=== PATIENT | female | born 1980 | race Caucasian/White ===

== ENCOUNTER 2019-06-07 20:15 | Emergency (ER) | payer OTHER, SELFPAY ==
[2019-06-07 20:16] VITALS: BP 123/74; PULSE 87; RESP 16; TEMP 36.6; O2SAT 100
[2019-06-07 20:28] VITALS: BP 141/97; PULSE 77; RESP 18; O2SAT 100
--- NOTE | 2019-06-07 20:30 | ED.FEMALEGU ---
HPI - Female Genitourinary General Chief complaint: Vaginal Bleeding Stated complaint: weakness Time Seen by Provider: 06/07/19 20:24 Source: patient Mode of arrival: ambulatory Limitations: no limitations History of Present Illness HPI Narrative: A 39 y/o female presents to the ED with c/o vaginal bleeding. Pt states that 3 months ago she started to have severe vaginal bleeding with clots and ABD cramping. She notes that she went to see her PCP for the vaginal bleeding, and had blood work done. The blood work showed that she was anemic and her PCP prescribed her control pills. At that appointment, the patient had a pelvic done which revealed that her uterus was inflamed. The patient has an US done as well, which came back normal. She notes that this month she had a heavy menstrual cycle on 05/17/19 that lasted till 05/27/19. Pt adds that she started her menstrual cycle again yesterday and states that it was dark blood with clots. She is still on control and takes Iron daily. Pt does not note any aggravating or alleviating for the vaginal bleeding. She reports decreased sleep, dizziness, N/V, and JANE, but denies ABD cramping. Pt has not seen an [employer] in 3 years. MD elicited complaint: vaginal bleeding Onset (ago): month(s) (3) Location of symptoms: vaginal Severity: similar to previous episodes Vaginal bleeding: dark red and clots Exacerbating factors: none Relieving factors: none Associated symptoms: headaches, nausea, vomiting and other (Decreased sleep, dizziness) Related Data Allergies Allergy/AdvReac Type Severity Reaction Status Date / Time No Known Allergies Allergy Unverified 01/19/17 08:16 Review of Systems Review of Systems: All systems reviewed & are unremarkable except as noted in HPI and below Constitutional: Constitutional: Reports other (Decreased sleep) Gastrointestinal: Gastrointestinal: Denies abdominal pain, Reports nausea and Reports vomiting Genitourinary: Genitourinary: Reports abnormal vaginal bleeding Neurologic: Reports dizziness and Reports headache(s) [facility] Past Medical History Medical History (Updated 06/07/19 @ 21:46 by Joanne Underwood MD) Abnormal glandular Papanicolaou smear of cervix Anemia Attention deficit disorder (ADD) in adult GERD (gastroesophageal reflux disease) Gestational HTN Human papillomavirus Nicotine dependence with current use Surgical History Surgical History (Updated 06/07/19 @ 20:33 by Delores Last) History of section Hx of tubal ligation Social History Social History (Updated 06/07/19 @ 20:33 by Delores Last) Smoking status: Former smoker Tobacco type: cigarettes Second hand tobacco smoke exposure: Yes Smoking end date: 04/10/13 Gender identity (if verbalized by the patient): Female Exam Const: General: no acute distress and well developed Orientation/consciousness: oriented to person, oriented to place, oriented to time and patient oriented x3 HENMT: Head: normocephalic Ears: external ears normal General nose exam: Normal external nose present Eyes: General: appearance normal, both eyes and all related structures Conjunctivae: conjunctivae normal Neck: Neck: normal visual inspection and full ROM Chest: Chest palpation & inspection: normal inspection of the chest and no tenderness Resp: Effort & Inspection: normal respiratory effort Auscultation: clear to auscultation bilaterally Cardio: Rate: regular rate Rhythm: regular rhythm GI: GI Palp: No abdominal tenderness and Yes Soft to palpation Skin: General skin exam: normal color and turgor normal Neuro: General: oriented to person, oriented to place, oriented to time and patient oriented x3 Cognition (Neuro): normal cognition Extrem: General: normal to inspection, full ROM and no pedal edema Psych: Appearance: grossly normal Mental Status: mental status grossly normal Affect: normal affect Course Vital Signs Vital signs: Vital Signs Temperature 36.6
[2019-06-07 20:53] LABS: Basophils Absolute Auto 0.1 K/mm3 (0.0-0.1); Basophils Percent Auto 0.7 % (0.2-1.2); Eosinophils Absolute Auto 0.2 K/mm3 (0-0.3); Eosinophils Percent Auto 2.7 % (0-4.4); Hematocrit 34.5 % (37.0-47.0); Hemoglobin 11.4 g/dL (12.0-15.0); Immature Granulocyte Absolute 0.02 K/mm3 (0.00-0.031); Immature Granulocyte Percent A 0.2 % (0-0.5); Lymphocytes Absolute Auto 3.27 K/mm3 (0.9-3.2); Lymphocytes Percent Auto 36.1 % (18.3-44.2); Mean Corpuscular Hemoglobin 28.6 pg (26-34); Mean Corpuscular Volume 86.5 fl (80-100); Mean Platelet Volume 10.4 fl (7.4-10.4); Monocytes Absolute Auto 0.6 K/mm3 (0.1-0.6); Monocytes Percent Auto 6.2 % (2.6-8.5); Neutrophils Absolute Auto 4.9 K/mm3 (1.3-6.7); Neutrophils Percent Auto 54.1 % (45.5-73.1); Platelet Count Result 353 k/mm3 (150-375); Red Blood Count 3.99 M/mm3 (4.2-5.4); Red Cell Distribution Width 13.2 % (11.5-14.5); White Blood Count 9.1 K/mm3 (4.5-10.0)
[2019-06-07 21:05] LABS: Alanine Aminotransferase 14 U/L (4-35); Albumin Level 4.1 g/dL (3.5-5.1); Alkaline Phosphatase 52 U/L (38-126); Aspartate Amino Transferase 15 U/L (14-36); Bilirubin,Total 0.3 mg/dL (0.2-1.3); Blood Urea Nitrogen 11 mg/dL (7-17); Calcium 9.4 mg/dL (8.4-10.2); Carbon Dioxide 22 mmol/L (22-30); Chloride 103 mmol/L (98-107); Estimated CRCL calculation 96 ml/min; Estimated Glomerular Filt Rate > 60; Glucose 107 mg/dL (65-105); Potassium 3.3 mmol/L (3.4-5.0); Sodium 140 mmol/L (137-145)
[2019-06-07] MEDS: POTASSIUM CHLORIDE 20 MEQ TABLET PO (21:21)
[2019-06-07 21:22] VITALS: BP 129/90; PULSE 76; RESP 18; O2SAT 99
[2019-06-07 21:29] LABS: Add Urine Microscopic? YES; Appearance Urine Clear (Clear); Bilirubin Urine Negative (Negative); Blood Urine 2+ (Negative); Color Urine Yellow (Yellow); Glucose Urine UA Negative (Negative); Ketones Urine Trace mg/dL (Negative); Leukocyte Esterase Ur Negative LEU/UL (Negative); Mucus Urine Heavy /lpf; Nitrate Urine Negative (Negative); Protein Urine 1+ mg/dL (Negative); Squamous Epithelial Cell Urine Few /hpf (Few); WBC Urine 0-3 /hpf
[2019-06-07 21:32] LABS: Specific Grav Ur 1.032 (1.001-1.035)
[2019-06-07 22:05] VITALS: BP 126/78; PULSE 78; RESP 18; TEMP 36.8; O2SAT 99
== END 2019-06-07 22:07 | disposition home or self-care (01) ==
PROVIDERS: Emergency Provider Emergency Medicine; PCP Family Medicine
DX: N93.9 Abnormal uterine and vaginal bleeding, unspecified (principal); D64.9 Anemia, unspecified; K21.9 Gastro-esophageal reflux disease without esophagitis; Z87.891 Personal history of nicotine dependence; Z77.22 Contact with and (suspected) exposure to environmental tobacco smoke (acute) (chronic); F98.8 Other specified behavioral and emotional disorders with onset usually occurring in childhood and adolescence
CPT/HCPCS: 36415; 80053; 81001; 81025; 85025; 99283; A9270

== ENCOUNTER 2019-06-28 01:26 | Day surgery (SDC) | payer OTHER, SELFPAY ==
--- NOTE | 2019-06-26 08:48 | P.HP_ITS ---
H&P: HPI History of Present Illness Chief complaint: irregular bleeding Narrative: Amber Ramey is a 39 year old female who is admitted for hysteroscopy dilatation curettage. She has been bleeding for 8 weeks and had no success with medication. Risks and benefits reviewed in full. She received the ACOG handout entitled hysteroscopy as well as dilatation curettage mass to proceed Review of Systems Review of Systems: All systems reviewed & are unremarkable except as noted in HPI and below PMFSH Past Medical History Medical History Abnormal glandular Papanicolaou smear of cervix Anemia Attention deficit disorder (ADD) in adult GERD (gastroesophageal reflux disease) Gestational HTN Human papillomavirus Nicotine dependence with current use Surgical History Surgical History History of section Hx of tubal ligation Social History Social History Smoking status: Former smoker Tobacco type: cigarettes Second hand tobacco smoke exposure: Yes Smoking end date: 04/10/13 Gender identity (if verbalized by the patient): Female Meds Home Medications and Allergies Home Medications Medication Instructions Recorded Confirmed Type desogestrel 0.15 mg-ethinyl 1 tablet PO DAILY #84 tablet 03/26/19 03/26/19 Rx estradiol 0.03 mg tablet ferrous sulfate 134 mg (27 mg 134 mg PO DAILY 06/12/19 History iron) tablet Adderall XR 30 mg capsule,extended 30 mg PO DAILY #30 cap NS 06/25/19 Rx release Adderall XR 30 mg capsule,extended 30 mg PO DAILY #30 cap NS 06/25/19 Rx release Adderall XR 30 mg capsule,extended 30 mg PO DAILY #30 cap NS 06/25/19 Rx release Allergies Allergy/AdvReac Type Severity Reaction Status Date / Time No Known Allergies Allergy Unverified 01/19/17 08:16 Exam Const: General: no acute distress Eyes: General: appearance normal, both eyes and all related structures Neck: Neck: supple and no JVD Thyroid: thyroid normal Resp: Effort & Inspection: normal respiratory effort Auscultation: clear to auscultation bilaterally Cardio: Rate: regular rate Rhythm: regular rhythm GI: Inspection: non-distended GI Palp: Yes Soft to palpation, No Tenderness to palpation present (GI) and No Guarding due to palpation present (GI) Auscultation: normal bowel sounds : General: Yes bladder normal to palpation External Female Exam: normal external appearance Speculum Exam - Vagina: normal vaginal discharge and No vaginal bleeding Speculum Exam - Cervix: nontender Bimanual exam- vagina & uterus: bladder normal to palpation and No Cervical tenderness present OB /external & speculum: No vaginal bleeding Skin: General skin exam: no rashes or lesions noted Extrem: General: normal to inspection and no edema Psych: Mental Status: mental status grossly normal Affect: normal affect Assessment and Plan Additional Plan impression: Bleeding refractory to medical therapy Plan: Hysteroscopy, dilatation curettage
[2019-06-26 09:50] VITALS: BMI 30.1
--- NOTE | 2019-06-28 06:46 | WPDHPUPDATE1 ---
History and Physical Update Update Date/Time: 06/28/19 06:46 History and Physical has been reviewed, including an updated exam of the patient. There are NO changes in the patient's condition. Risks, benefits, and alternatives have been discussed and questions answered. Patient agrees to proceed with procedure.
[2019-06-28] MEDS: LACTATED RINGERS 1,000 ML 30 ML IV CONT (08:00)
--- NOTE | 2019-06-28 08:28 | P.PNAN_ITS ---
Anes - Initial Pre Proc Eval Procedure: Operation Date: 06/28/19 09:30 Proposed Procedures p Hysteroscopy, Dilation and Curettage - Maged Call MD Date/Time: 06/28/19 08:28 Surgeon: Maged Call MD Pre Op Diagnosis: irregular bleeding Patient Data Age: 39 Gender: F Height: 5 ft 10 in Weight: 94.2 kg Allergies Allergy/AdvReac Type Severity Reaction Status Date / Time No Known Allergies Allergy Unverified 06/28/19 08:10 Home Medications Medication Instructions Recorded Confirmed Type ferrous sulfate 134 mg (27 mg 134 mg PO DAILY 06/12/19 06/28/19 History iron) tablet Adderall XR 30 mg capsule,extended 30 mg PO DAILY #30 cap NS 06/25/19 06/28/19 Rx release hydrocodone-acetaminophen [[place]] 1 tablet PO Q4H PRN #20 tablet 06/28/19 Rx Patient hx anesthesia problems: none Family hx anesthesia problems: none PMFSH Past Medical History Medical History Abnormal glandular Papanicolaou smear of cervix Anemia Attention deficit disorder (ADD) in adult GERD (gastroesophageal reflux disease) Gestational HTN Human papillomavirus Nicotine dependence with current use Status post hysteroscopy 3 and dilatation and curettage for menorrhagia Surgical History Surgical History History of section Hx of tubal ligation Social History Social History Smoking status: Former smoker Tobacco type: cigarettes Second hand tobacco smoke exposure: Yes Smoking end date: 04/10/13 Gender identity (if verbalized by the patient): Female Anes - Eval Final PreProcedure Day of Procedure 06/28/19 08:28 Patient weight: overweight Heart: regular rate and rhythm Lungs: clear to auscultation Airway: Mallampati scale class II Neurological: alert and oriented Last oral intake: >/= 8 hours ASA classification: II Emergent: no Anesthetic plan: proceed Anesthesia type and monitoring: general GIVS and standard monitoring Informed Consent: The patient's anesthetic plan and its attendant risks and benefits were discussed with the patient/family/POA. Questions were solicited and answers provided to the satisfaction of the patient/family/POA.
[2019-06-28] MEDS: KETOROLAC 30 MG/ML VIAL (*BKC) IV PUSH (09:18)
--- NOTE | 2019-06-28 09:21 | SUR.OPER ---
Ebl=5ml
--- NOTE | 2019-06-28 09:26 | P.OP_ITS ---
Procedure Note - Detailed Date of procedure: 06/28/19 Pre-op diagnosis: irregular bleeding Surgeon: Maged Call MD Postop diagnosis: Irregular bleeding Procedure: Hysteroscopy, dilatation curettage The anesthesia: IV sedation local EBL: 5cc Complications: None Findings: Thick irregular endometrial tissue Procedure: Patient was prepped and draped in the normal sterile fashion placed in the dorsal lithotomy position. Under excellent IV sedation weighted speculum placed in posterior fornix of vagina. Anterior lip of the cervix was grasped with a single-tooth tenaculum. 2.5cc of 1% xylocaine anesthesia placed at 2, 4, 6, 8 of the cervix. The uterus sounded to 8cm. Serial dilatation with fra gmented out performed followed by passes of the 5 visualizing hysteroscope. Normal sound visualizing medium thick irregular endometrial tissue was seen. Uterus was then scraped over the entire 360? until a good grating sound was heard. The instruments removed all sponge, needle, instrument counts were correct. There were no immediate complications
[2019-06-28 09:29] VITALS: BP 105/67; PULSE 79; RESP 14; O2SAT 98
[2019-06-28 09:59] VITALS: BP 94/54; PULSE 70; RESP 14; O2SAT 100
[2019-06-28 10:22] VITALS: BP 94/81; PULSE 103; RESP 16; O2SAT 100
== END 2019-06-28 10:28 | disposition home or self-care (01) ==
PROVIDERS: PCP Family Medicine; Visit Provider Obstetrics & Gynecology
PROC: 0U5B8ZZ Destruction of Endometrium, Via Natural or Artificial Opening Endoscopic (ICD-10-PCS; CPT 58563; principal; 2019-06-28 09:30)
DX: N93.9 Abnormal uterine and vaginal bleeding, unspecified (principal); D64.9 Anemia, unspecified; K21.9 Gastro-esophageal reflux disease without esophagitis; Z87.891 Personal history of nicotine dependence
CPT/HCPCS: 58558; 88305; A9270; J0131; J1100; J1885; J2250; J2405; J2704; J3010; J7030; J7120

== ENCOUNTER 2019-07-29 00:59 | Day surgery (SDC) | payer OTHER, SELFPAY ==
--- NOTE | 2019-07-24 07:55 | PM.IMHP ---
H&P: HPI History of Present Illness Chief complaint: Uncontrolled Bleeding/ Anemia Narrative: Amber Ramey is a 39 year old female Multiparous patient who is admitted for robotic total vaginal hysterectomy and bilateral salpingectomy. She has a history of 2 previous deliveries by and a miscarriage. She has been bleeding despite treatment with estrogen progesterone combination of the 2 and D&C with benign findings. She understands this will make her permanently infertile. Risks and benefits were reviewed including but not exclusive of , aspiration pneumonia, bleeding, transfusion, perforation injury to bowel, bladder, ureters, or other internal organs with need for open laparotomy. She voiced good understanding. She had all questions answered. She received the ACOG handout entitled hysterectomy as well as the MAXIMO div in she handout and asked to proceed Review of Systems Review of Systems: All systems reviewed & are unremarkable except as noted in HPI and below PMFSH Past Medical History Medical History Abnormal glandular Papanicolaou smear of cervix Anemia Attention deficit disorder (ADD) in adult GERD (gastroesophageal reflux disease) Gestational HTN Human papillomavirus Nicotine dependence with current use Status post hysteroscopy 06.25.19 and dilatation and curettage for menorrhagia Surgical History Surgical History History of section Hx of tubal ligation Social History Social History Smoking status: Former smoker Tobacco type: cigarettes Second hand tobacco smoke exposure: Yes Smoking end date: 04/10/13 Gender identity (if verbalized by the patient): Female Meds Home Medications and Allergies Home Medications Medication Instructions Recorded Confirmed Type ferrous sulfate 134 mg (27 mg 134 mg PO DAILY 06/12/19 06/28/19 History iron) tablet Adderall XR 30 mg capsule,extended 30 mg PO DAILY #30 cap NS 06/25/19 06/28/19 Rx release hydrocodone-acetaminophen [[place]] 1 tablet PO Q4H PRN #20 tablet 06/28/19 Rx Allergies Allergy/AdvReac Type Severity Reaction Status Date / Time No Known Allergies Allergy Unverified 06/28/19 08:10 Exam Const: General: no acute distress Eyes: General: appearance normal, both eyes and all related structures Neck: Neck: supple and no JVD Thyroid: thyroid normal Resp: Effort & Inspection: normal respiratory effort Auscultation: clear to auscultation bilaterally Cardio: Rate: regular rate Rhythm: regular rhythm GI: Inspection: non-distended GI Palp: Yes Soft to palpation, No Tenderness to palpation present (GI) and No Guarding due to palpation present (GI) Auscultation: normal bowel sounds : External Female Exam: normal external appearance Speculum Exam - Vagina: normal appearance of the vagina and vaginal bleeding Bimanual exam- vagina & uterus: enlarged Skin: General skin exam: no rashes or lesions noted Extrem: General: normal to inspection and no edema Psych: Mental Status: mental status grossly normal Affect: normal affect Assessment and Plan Additional Plan impression: Enlarged uterus and bleeding refractory to medical therapy Plan: Robotic total vaginal hysterectomy and bilateral salpingectomies
[2019-07-26 09:35] VITALS: BMI 28.9
[2019-07-29] VITALS (15 sets, daily range): BP systolic 82–120; BP diastolic 51–79; PULSE 56–79; RESP 12–18; TEMP 36.2–37.1; O2SAT 95–100
--- NOTE | 2019-07-29 06:37 | WPDHPUPDATE1 ---
History and Physical Update Update Date/Time: 07/29/19 06:37 History and Physical has been reviewed, including an updated exam of the patient. There are NO changes in the patient's condition. Risks, benefits, and alternatives have been discussed and questions answered. Patient agrees to proceed with procedure.
--- NOTE | 2019-07-29 06:45 | WPDANESEPPF ---
Anes - Initial Pre Proc Eval Procedure: Operation Date: 07/29/19 07:30 Proposed Procedures p Robotic Assisted Total Vaginal Hysterectomy, Bilateral Salpingectomy - Maged Call MD Date/Time: 07/29/19 06:45 Surgeon: Maged Call MD Pre Op Diagnosis: Uncontrolled Bleeding/ Anemia Patient Data Age: 39 Gender: F Height: 5 ft 11 in Weight: 94 kg Allergies Allergy/AdvReac Type Severity Reaction Status Date / Time No Known Allergies Allergy Unverified 07/26/19 09:33 Home Medications Medication Instructions Recorded Confirmed Type ferrous sulfate 134 mg (27 mg 134 mg PO DAILY 06/12/19 07/29/19 History iron) tablet Adderall XR 30 mg capsule,extended 30 mg PO DAILY #30 cap NS 06/25/19 07/29/19 Rx release hydrocodone-acetaminophen [[place]] 1 tablet PO Q4H PRN #30 tablet 07/29/19 Rx Patient hx anesthesia problems: none Family hx anesthesia problems: none PMFSH Past Medical History Medical History Abnormal glandular Papanicolaou smear of cervix Anemia Attention deficit disorder (ADD) in adult GERD (gastroesophageal reflux disease) Gestational HTN Human papillomavirus Nicotine dependence with current use Status post hysteroscopy 06.25.19 and dilatation and curettage for menorrhagia Surgical History Surgical History History of section Hx of tubal ligation Social History Social History Smoking status: Former smoker Tobacco type: cigarettes Second hand tobacco smoke exposure: Yes Smoking end date: 04/10/13 Gender identity (if verbalized by the patient): Female Anes - Eval Final PreProcedure Day of Procedure 07/29/19 06:45 Patient weight: overweight Lungs: clear to auscultation Airway: Mallampati scale class II Neurological: alert and oriented Last oral intake: >/= 8 hours ASA classification: II Emergent: no Anesthetic plan: proceed Anesthesia type and monitoring: general ETT and standard monitoring Informed Consent: The patient's anesthetic plan and its attendant risks and benefits were discussed with the patient/family/POA. Questions were solicited and answers provided to the satisfaction of the patient/family/POA.
[2019-07-29] MEDS: LACTATED RINGERS 1,000 ML 30 ML IV CONT ×2 (07:00→09:16)
[2019-07-29] MEDS: ceFAZolin 2 GM/D5W 50 ML 2 GM/50 ML BAG IVPB (08:05)
--- NOTE | 2019-07-29 09:12 | PM.PROC ---
Procedure Note - Detailed Date of procedure: 07/29/19 Pre-op diagnosis: Uncontrolled Bleeding/ Anemia Surgeon: Maged Call MD Postop diagnosis: Uncontrolled bleeding/anemia/enlarged uterus/pelvic adhesions Procedure: Robotic total vaginal hysterectomy/bilateral salpingectomy/extensive lysis of adhesions EBL: 100cc : Anesthesia: General endotracheal Complications: None Findings: A markedly enlarged uterus. Tubes status post tubal ligation. Normal-appearing ovaries. Multiple adhesions in the pelvis including the uterus adherent to the anterior abdominal wall. Description of procedure: The patient was prepped and draped in the normal sterile fashion placed in the dorsal lithotomy position. Under excellent general endotracheal anesthesia weighted speculum was placed in the posterior fornix of vagina. Anterior lip of the cervix grasped with a single-tooth tenaculum. The uterus sounded to 13cm. Serial dilatation with fragmented dilators performed. This was followed by passage of the 12. LANIE and the 3 and half cold cup. Next the 16 [place] catheter was placed in the bladder. The instruments were otherwise removed. An gloves were changed. A supraumbilical incision made. Veress needle passed in the abdomen. Abdomen was filled with CO2 gas [id number]. The 8mm trocar was advanced in the abdomen. Down site was visualized no injury seen. The patient was placed in Trendelenburg and a suprapubic incision made on the left and the right lateral quadrant with 8mm trocars advanced in the abdomen. This assure no injury. A right upper quadrant incision made in the 10mm trocar advanced under direct visualization again assuring no injury. The robot was docked. Attending the marriage and family counselor. The uterus is noted to be markedly adherent to the anterior abdominal wall. The tubes were status post tubal ligation with multiple adhesions and using sharp dissection the bowel and overlying omentum were removed to help with visualization of the uterus. The tubes were dissected bilaterally to be removed. The ovaries were maintained anteriorly the uterus was markedly adherent to the anterior abdominal wall. By using sharp dissection this was carefully brought down until a good bladder of flap was able to be formed. The left round ligament grasped, burned, cut anteriorly and this was brought across to the opposite round ligament was clamped burned, burned, cut. The utero-ovarian ligament on the left was then skeletonized serially clamped, burned, cut and brought to the level of the previously cut round ligament. The conserving the right ovary on the the utero-ovarian ligament was clamped, burned, cut and brought to the level of the previously cut round ligament. Cardinal and broad ligaments on the left were then serially skeletonized and brought down the lateral edge of the uterus by clamping burning and cutting. When the uterine vessels could be seen on the left these were individually clamped, burned, cut. In like fashion the cardinal and broad ligaments on the right were serially skeletonized, cut burned and dissected away. Once the uterine vessels on the right could be visualized they were individually clamped, burned, cut. A colpotomy incision was made and the cervix uterus and tubes removed through the vagina. Blood loss was estimated about 100cc irrigation was undertaken until clear the vagina was closed with continuous running 0V lock from lateral edge to lateral edge. This was and then back to the midline. Irrigation was undertaken until clear hematuria was placed over raw surface areas. This was then followed by placement of Interceed over the this area to help prevent future adhesions. The robot was undocked. The gas removed from the abdomen. The trocars removed from the abdomen. The incisions closed with 4 O Monocryl and glue. The patient was awakened. All sponge, needle, instrument counts were correct. There were no immediate complications
--- NOTE | 2019-07-29 10:03 | SUR.PHASEI ---
1003 called pt's to update No answer
--- NOTE | 2019-07-29 10:17 | OBPPTRN ---
@ 1027 Patient transferred to room #281 via bed. Support person present. Oriented to unit, room, information board, admission packet and security measures. Patient verbalizes understanding.
[2019-07-29] MEDS: DEXTROSE 5%/LACTATED RINGERS 1,000 ML 125 ML IV CONT (11:02)
[2019-07-29] MEDS: KETOROLAC 30 MG/ML VIAL (*BKC) IV PUSH ×2 (13:07→19:46)
[2019-07-29] MEDS: SODIUM CHLORIDE 0.9% IV 500 ML 1000 ML IV CONT (13:47)
[2019-07-29 13:58] LABS: Hematocrit 33.6 % (37.0-47.0); Hemoglobin 10.5 g/dL (12.0-15.0)
[2019-07-29] MEDS: DOCUSATE SODIUM 100 MG CAPSULE PO (19:45)
[2019-07-30 00:12] VITALS: PULSE 72; RESP 18; O2SAT 97
[2019-07-30 00:15] VITALS: BP 112/76; PULSE 72; RESP 18; TEMP 37.1; O2SAT 97
[2019-07-30 04:13] VITALS: BP 129/76; PULSE 88; RESP 16; TEMP 37.1; O2SAT 98
[2019-07-30 04:15] VITALS: PULSE 88; RESP 16; O2SAT 98
[2019-07-30] MEDS: IBUPROFEN 600 MG TABLET PO (04:19)
[2019-07-30 04:56] LABS: Basophils Percent Auto 0.2 % (0.2-1.2); Eosinophils Absolute Auto 0.1 K/mm3 (0-0.3); Eosinophils Percent Auto 0.4 % (0-4.4); Hematocrit 33.1 % (37.0-47.0); Hemoglobin 10.8 g/dL (12.0-15.0); Immature Granulocyte Absolute 0.04 K/mm3 (0.00-0.031); Immature Granulocyte Percent A 0.3 % (0-0.5); Lymphocytes Absolute Auto 2.39 K/mm3 (0.9-3.2); Lymphocytes Percent Auto 17.2 % (18.3-44.2); Mean Corpuscular HGB Conc 32.6 g/dl (32-36); Mean Platelet Volume 10.1 fl (7.4-10.4); Monocytes Absolute Auto 0.8 K/mm3 (0.1-0.6); Monocytes Percent Auto 5.7 % (2.6-8.5); Neutrophils Absolute Auto 10.6 K/mm3 (1.3-6.7); Neutrophils Percent Auto 76.2 % (45.5-73.1); Platelet Count Result 352 k/mm3 (150-375); Red Blood Count 3.72 M/mm3 (4.2-5.4); White Blood Count 13.9 K/mm3 (4.5-10.0)
--- NOTE | 2019-07-30 06:40 | P.DS_ITS ---
DS: Diagnosis Admitting Diagnosis Admitting Diagnosis: enlarged uterus/pain/bleed DS: Summary Time Spent with Patient Time attestation: Total time spent providing and/or coordinating discharge services: Exam Const: General: no acute distress Eyes: General: appearance normal, both eyes and all related structures Neck: Neck: supple and no JVD Thyroid: thyroid normal Resp: Effort & Inspection: normal respiratory effort Auscultation: clear to auscultation bilaterally Cardio: Rate: regular rate Rhythm: regular rhythm GI: Inspection: non-distended GI Palp: Yes Soft to palpation, No Tenderness to palpation present (GI) and No Guarding due to palpation present (GI) Auscultation: normal bowel sounds : General: Yes bladder normal to palpation External Female Exam: normal external appearance Speculum Exam - Vagina: normal vaginal discharge and No vaginal bleeding Speculum Exam - Cervix: nontender Bimanual exam- vagina & uterus: bladder normal to palpation and No Cervical tenderness present OB/external & speculum: No vaginal bleeding Skin: General skin exam: no rashes or lesions noted Extrem: General: normal to inspection and no edema Psych: Mental Status: mental status grossly normal Affect: normal affect DS: Data Data Completed and Pending Pending studies at discharge: Pending at discharge 07/29/19 08:52 Surgical [PTH] Routine Labs on day of discharge: Labs from last 24 hours 07/30/19 07/29/19 07/29/19 04:30 13:51 06:50 WBC 13.9 H RBC 3.72 L Hgb 10.8 L 10.5 L Hct 33.1 L 33.6 L MCV 89.0 MCH 29.0 MCHC 32.6 RDW 13.0 Plt Count 352 MPV 10.1 Immature Gran % (Auto) 0.3 Neut % (Auto) 76.2 H Lymph % (Auto) 17.2 L [place] % (Auto) 5.7 Eos % (Auto) 0.4 Baso % (Auto) 0.2 Lymph # (Auto) 2.39 [place] # (Auto) 0.8 H Eos # (Auto) 0.1 Baso # (Auto) 0.0 Abs Immat Gran (auto) 0.04 H Absolute Neuts (auto) 10.6 H Absolute Nucleated RBC 0.0 Nucleated RBC % 0.0 Blood Type O Positive Antibody Screen Negative Discharge Plan Discharge Patient Disposition: Home, Self-Care Stand Alone Forms: General Discharge Instructions Follow-up/Referrals: Maged Call MD [Physician] - Johnna Claire MD [Primary Care Provider] - Discharge Medications: New hydrocodone-acetaminophen [[place]] 5-325 mg tablet 1 tablet PO Q4H PRN (Reason: pain) Qty: 30 RF: 0 Continued ferrous sulfate 134 mg (27 mg iron) tablet 134 mg PO DAILY RF: 0 dextroamphetamine-amphetamine [Adderall XR] 30 mg capsule,extended release 24hr 30 mg PO DAILY Qty: 30 RF: 0
--- NOTE | 2019-07-30 06:41 | P.PNOB_ITS ---
OB - PN: Subj Subjective Date/time seen: 07/30/19 06:41 Patient comments: no complaints OB - PN: Obj Data Labs CBC & Chem 7: 07/30/19 04:30 Labs: Laboratory Results - last 24 hr 07/29/19 07/29/19 07/30/19 06:50 13:51 04:30 WBC 13.9 H RBC 3.72 L Hgb 10.5 L 10.8 L Hct 33.6 L 33.1 L MCV 89.0 MCH 29.0 MCHC 32.6 RDW 13.0 Plt Count 352 MPV 10.1 Immature Gran % (Auto) 0.3 Neut % (Auto) 76.2 H Lymph % (Auto) 17.2 L [place] % (Auto) 5.7 Eos % (Auto) 0.4 Baso % (Auto) 0.2 Lymph # (Auto) 2.39 [place] # (Auto) 0.8 H Eos # (Auto) 0.1 Baso # (Auto) 0.0 Abs Immat Gran (auto) 0.04 H Absolute Neuts (auto) 10.6 H Absolute Nucleated RBC 0.0 Nucleated RBC % 0.0 Blood Type O Positive Antibody Screen Negative OB - PN A/P Plan day: 1 Plan: follow up 6 weeks (2 weeks) Time Spent With Patient Time: Total time spent is greater than 50% in coordination of care (as documented) at patient's floor/unit and/or counseling patient: Time with patient: less than 15 minutes Review of Systems Review of Systems: All systems reviewed & are unremarkable except as noted in HPI and below Exam Const: General: no acute distress Eyes: General: appearance normal, both eyes and all related structures Neck: Neck: supple and no JVD Thyroid: thyroid normal Resp: Effort & Inspection: normal respiratory effort Auscultation: clear to auscultation bilaterally Cardio: Rate: regular rate Rhythm: regular rhythm GI: Inspection: normal to inspection and incision (cdi) Percussion: Yes normal to percussion Auscultation: normal bowel sounds : General: Yes bladder normal to palpation External Female Exam: normal external appearance Speculum Exam - Vagina: normal vaginal discharge and No vaginal bleeding Speculum Exam - Cervix: nontender Bimanual exam- vagina & uterus: bladder normal to palpation and No Cervical tenderness present OB/external & speculum: No vaginal bleeding Skin: General skin exam: no rashes or lesions noted Extrem: General: normal to inspection and no edema Psych: Mental Status: mental status grossly normal Affect: normal affect
[2019-07-30 08:00] VITALS: BP 109/64; PULSE 86; RESP 22; TEMP 37.1
[2019-07-30] MEDS: SIMETHICONE 80 MG TAB.CHEW PO (08:41)
[2019-07-30] MEDS: DOCUSATE SODIUM 100 MG CAPSULE PO (08:41)
[2019-07-30] MEDS: ENOXAPARIN 40 MG/0.4 ML SYRINGE SUB-Q (08:41)
--- NOTE | 2019-07-30 11:03 | PC.NURSE ---
Self care discharge instructions given to pt. including pain prescription and when to make appt. with Dr. Mikey Pedersen. No questions or concerns voiced. Very pleasant and cooperative.
--- NOTE | 2019-07-30 11:13 | WPDANESPN ---
Anes - Prog Note Post-Op Date/Time: 07/30/19 11:13 Cardiovascular status: normal Respiratory status: normal Airway patency: baseline Mental status: baseline Post-Op hydration status: normal Vital Signs: Last Vital Signs Temp 37.1 C 07/30/19 08:00 Pulse 86 07/30/19 08:00 Resp 22 H 07/30/19 08:00 BP 109/64 07/30/19 08:00 Pulse Ox 98 07/30/19 04:15 I/O: Intake & Output 07/29/19 07/30/19 07/30/19 23:59 07:59 15:59 Intake Total 1190 1000 400 Output Total 2425 350 300 Balance -1235 650 100 Laboratory Tests 07/30/19 04:30 07/29/19 07/30/19 13:51 04:30 WBC 13.9 H RBC 3.72 L Hgb 10.5 L 10.8 L Hct 33.6 L 33.1 L MCV 89.0 MCH 29.0 MCHC 32.6 RDW 13.0 Plt Count 352 MPV 10.1 Immature Gran % (Auto) 0.3 Neut % (Auto) 76.2 H Lymph % (Auto) 17.2 L [place] % (Auto) 5.7 Eos % (Auto) 0.4 Baso % (Auto) 0.2 Lymph # (Auto) 2.39 [place] # (Auto) 0.8 H Eos # (Auto) 0.1 Baso # (Auto) 0.0 Abs Immat Gran (auto) 0.04 H Absolute Neuts (auto) 10.6 H Absolute Nucleated RBC 0.0 Nucleated RBC % 0.0 Post-procedural complaints: none Patient Feedback: Patient satisfied with anesthetic care.
--- NOTE | 2019-07-30 12:42 | PC.NURSE ---
[place] 5 and Motrin 600mg given to pt. manually due to computer not working at discharge.
== END 2019-07-30 12:00 | disposition home or self-care (01) ==
LOC: ANHSURGERY 06:42 → ANHOB2 10:33
PROVIDERS: PCP Family Medicine; Visit Provider Obstetrics & Gynecology
PROC: (CPT 58552; principal; 2019-07-29 07:30)
DX: N93.9 Abnormal uterine and vaginal bleeding, unspecified (principal); D64.9 Anemia, unspecified; N73.6 Female pelvic peritoneal adhesions (postinfective); N80.0 Endometriosis of uterus; D25.1 Intramural leiomyoma of uterus; N70.11 Chronic salpingitis; F98.8 Other specified behavioral and emotional disorders with onset usually occurring in childhood and adolescence; K21.9 Gastro-esophageal reflux disease without esophagitis; F17.210 Nicotine dependence, cigarettes, uncomplicated
CPT/HCPCS: 58552; S2900; 36415; 85014; 85018; 85025; 86850; 86900; 86901; 88307; 99199; A9270; J0131; J0690; J1100; J1170; J1650; J1885; J2250; J2405; J3010; J7030; J7040; J7120; J7121

== ENCOUNTER 2020-08-20 23:42 | Emergency (ER) | payer OTHER, SELFPAY ==
--- NOTE | ~2020-08-20 | XR_ITS ---
EXAMINATION: XR elbow RT min 3V DATE: 08/21/2020 00:14 INDICATION: Posterior right elbow pain TECHNIQUE: Anteroposterior, two oblique and lateral views of the right elbow were obtained. COMPARISON: None. FINDINGS: Alignment is normal. No fracture or joint effusion. Joint spaces are normal. Soft tissues are unremar kable. IMPRESSION: 1. Negative right elbow radiographs. Reviewed, dictated and finalized at location A.
[2020-08-20 23:46] VITALS: BP 115/74; PULSE 70; RESP 18; TEMP 36.6; O2SAT 100
[2020-08-20 23:49] VITALS: BP 126/80; PULSE 70; RESP 18; TEMP 36.6; O2SAT 100
--- NOTE | 2020-08-20 23:57 | ED.UPPEXIN ---
HPI - Extremity Injury (Upper) General Chief Complaint: Extremity Injury, Upper Stated Complaint: right arm pain Time Seen by Provider: 08/20/20 23:50 Source: patient Mode of arrival: ambulatory Limitations: no limitations History of Present Illness HPI narrative: This is a 40-year-old female that presents to the emergency department for right elbow pain after an injury today. Reports around 6 PM she was trying to break up her children fighting. She threw her right elbow back and hit it on the corner of a counter. Reports since she has had pain in the elbow. Worse with movement and relieved with rest. Denies decreased range of motion or numbness. Related Data Home Medications Medication Instructions Recorded Confirmed ferrous sulfate 134 mg (27 mg 134 mg PO DAILY 06/12/19 07/09/20 iron) tablet Allergies Allergy/AdvReac Type Severity Reaction Status Date / Time No Known Allergies Allergy Verified 08/20/20 23:54 Review of Systems Review of Systems: Narrative: CONSTITUTIONAL: Denies fever MUSCULOSKELETAL: Reports joint pain, and myalgia. NEUROLOGIC: Denies numbness All systems reviewed & are unremarkable except as noted in HPI and below PMFSH Past Medical History Medical History (Updated 08/21/20 @ 00:27 by Jennie Cordoba PA-C) Abnormal glandular Papanicolaou smear of cervix Anemia Attention deficit disorder (ADD) in adult Dysmenorrhea, unspecified GERD (gastroesophageal reflux disease) Gestational HTN Human papillomavirus Menorrhagia, premenopausal resolved . vaginal hysterectomy/bso Status post hysteroscopy 06.25.19 and dilatation and curettage for menorrhagia Surgical History Surgical History (Updated 07/09/20 @ 11:45 by Johnna Claire MD) History of section History of vaginal hysterectomy 07.29.2019 and BSO Hx of tubal ligation Social History Social History Smoking status: Former smoker Tobacco type: cigarettes Second hand tobacco smoke exposure: Yes Smoking end date: 04/10/13 Gender identity (if verbalized by the patient): Female Exam Narrative: Exam Narrative: GENERAL: Well-appearing, well-nourished, and in no acute distress. HEAD: Normocephalic, atraumatic. EYES: EOMI. EXTREMITIES: Normal range of motion. No edema or obvious deformity. Normal radial pulses. Normal sensation SKIN: Warm, dry, no rash. NEURO: No focal deficits. Alert and oriented x3. PSYCH: Normal mood and affect Course Vital Signs Vital signs: Vital Signs Temperature 97.9 F 08/20/20 23:46 Pulse Rate 70 08/20/20 23:46 Respiratory Rate 18 08/20/20 23:46 Blood Pressure 115/74 08/20/20 23:46 Pulse Oximetry 100 08/20/20 23:46 Temperature 98 F 08/20/20 23:49 Pulse Rate 70 08/20/20 23:49 Respiratory Rate 18 08/20/20 23:49 Blood Pressure 126/80 08/20/20 23:49 Pulse Oximetry 100 08/20/20 23:49 MDM - Extremity Injury (Upper) MDM Narrative Medical decision making narrative: Patient presents the emergency department for right elbow pain after an injury today. Right elbow x-rays without acute osseous abnormalities. Patient instructed to rest, ice and take [id number] pain medication as needed. She is to follow-up with primary care doctor. She was given warnings to return to the ER Imaging Data My impression: Right elbow x-ray: No acute osseous abnormalities Critical Care Time Critical Care Time Critical Care Time: No Discharge Plan Discharge Clinical Impression: Contusion of right elbow Qualifiers: Encounter type: initial encounter Qualified Code(s): S50.01XA - Contusion of right elbow, initial encounter Patient Disposition: Home, Self-Care Condition: Stable Instructions: Contusion in Adults (ED) Additional Instructions: Return to the emergency department if you experience fever, redness and swelling of your arm, numbness, or any other symptoms that are concerning to you R
== END 2020-08-21 00:51 | disposition home or self-care (01) ==
PROVIDERS: Emergency Provider Emergency Medicine; PCP Family Medicine
DX: S50.01XA Contusion of right elbow, initial encounter (principal); D64.9 Anemia, unspecified; F98.8 Other specified behavioral and emotional disorders with onset usually occurring in childhood and adolescence; K21.9 Gastro-esophageal reflux disease without esophagitis; Z87.891 Personal history of nicotine dependence; W22.09XA Striking against other stationary object, initial encounter
CPT/HCPCS: 73080; 99283

== ENCOUNTER 2021-07-06 09:13 | Emergency (ER) | payer OTHER, SELFPAY ==
[2021-07-06 09:20] VITALS: BP 107/75; PULSE 79; RESP 16; TEMP 36.4; O2SAT 100
--- NOTE | 2021-07-06 09:31 | ED.NAVMDI ---
HPI - Nausea/Vomiting/Diarrhea General Chief complaint: Nausea/Vomiting/Diarrhea Stated complaint: diarrhea Time Seen by Provider: 07/06/21 09:17 History of Present Illness HPI Narrative: 41-year-old female presents emergency room with acute onset of diarrhea that began yesterday. Patient states that she has had multiple episodes of loose stool, denies blood in her stool. Patient reports that her child had similar symptoms over the weekend. Admits to attempting to rehydrate herself with water and orange juice. Has had intermittent nausea without vomiting. Reports generalized abdominal cramping feeling. Patient has a history of a partial hysterectomy. Related Data Home Medications Medication Instructions Recorded Confirmed ferrous sulfate 134 mg (27 mg 134 mg PO DAILY 06/12/19 07/09/20 iron) tablet Allergies Allergy/AdvReac Type Severity Reaction Status Date / Time No Known Allergies Allergy Verified 08/20/20 23:54 Review of Systems Review of Systems: CONSTITUTIONAL: Denies fever, chills, or sweats. EYES: Denies visual changes, redness, or discharge. ENT: Denies rhinorrhea, congestion, sore throat, or otalgia. CARDIOVASCULAR: Denies chest pain, palpitations, or edema. RESPIRATORY: Denies cough or dyspnea. GASTROINTESTINAL: Diarrhea per HPI GENITOURINARY: Denies dysuria or hematuria. SKIN: Denies rash or itching. MUSCULOSKELETAL: Denies back pain, joint pain, or myalgia. NEUROLOGIC: Denies headache, numbness, dizziness, or weakness. PSYCHIATRIC: Denies anxiety or depression. [facility] Past Medical History Medical History Abnormal glandular Papanicolaou smear of cervix Anemia Attention deficit disorder (ADD) in adult Dysmenorrhea, unspecified GERD (gastroesophageal reflux disease) Gestational HTN Human papillomavirus Menorrhagia, premenopausal resolved . vaginal hysterectomy/bso Status post hysteroscopy 06.25.19 and dilatation and curettage for menorrhagia Surgical History Surgical History History of section History of vaginal hysterectomy 07.29.2019 and BSO Hx of tubal ligation Social History Social History Smoking status: Former smoker Tobacco type: cigarettes Second hand tobacco smoke exposure: Yes Smoking end date: 04/10/13 Gender identity (if verbalized by the patient): Female Exam Narrative: GENERAL: Well-appearing, well-nourished, and in no acute distress. HEAD: Normocephalic, atraumatic. EYES: PERRLA and EOMI. ENT: Nares clear, no rhinorrhea or epistaxis. Mucous membranes dry CHEST: Clear to auscultation. No respiratory distress. No wheezes rales or rhonchi HEART: Regular rate and rhythm. No murmur heard. Normal peripheral pulses. ABDOMEN: Soft, nontender, nondistended, normal active bowel sounds. EXTREMITIES: Normal range of motion. No edema. SKIN: Warm, dry, no rash. NEURO: No focal deficits. Alert and oriented x3. PSYCH: Normal mood and affect. Course Vital Signs Vital signs: Vital Signs Temperature 36.4 C 07/06/21 09:20 Pulse Rate 79 07/06/21 09:20 Respiratory Rate 16 07/06/21 09:20 Blood Pressure 107/75 07/06/21 09:20 Pulse Oximetry 100 07/06/21 09:20 Temperature 36.4 C 07/06/21 09:20 Pulse Rate 79 07/06/21 09:20 Respiratory Rate 16 07/06/21 09:20 Blood Pressure 107/75 07/06/21 09:20 Pulse Oximetry 100 07/06/21 09:20 MDM - Nausea/Vomiting/Diarrhea MDM Narrative Medical decision making narrative: 41-year-old female presented emergency room with acute onset of diarrhea for 1 day. CBC and CMP were unremarkable. Patient was given a liter of fluid, and dicyclomine helped her symptoms. Patient is likely experiencing gastroenteritis. Discussed patient should stay on a bland diet and not to take any [id number] antidiarrheals at this time. Differential D
[2021-07-06] MEDS: SODIUM CHLORIDE 0.9% IV 1,000 ML 999 ML IV CONT (09:45)
[2021-07-06] MEDS: DICYCLOMINE HCL INJ 20 MG/2 ML VIAL IM (09:46)
[2021-07-06 09:56] LABS: Basophils Percent Auto 0.4 % (0.2-1.2); Eosinophils Absolute Auto 0.1 K/mm3 (0-0.3); Eosinophils Percent Auto 0.9 % (0-4.4); Hemoglobin 13.2 g/dL (12.0-15.0); Immature Granulocyte Absolute 0.01 K/mm3 (0.00-0.031); Immature Granulocyte Percent A 0.1 % (0-0.5); Lymphocytes Absolute Auto 1.23 K/mm3 (0.9-3.2); Lymphocytes Percent Auto 18.1 % (18.3-44.2); Mean Corpuscular Hemoglobin 29.3 pg (26-34); Mean Corpuscular Volume 88.9 fl (80-100); Mean Platelet Volume 10.2 fl (7.4-10.4); Monocytes Absolute Auto 0.4 K/mm3 (0.1-0.6); Monocytes Percent Auto 6.5 % (2.6-8.5); Platelet Count Result 268 k/mm3 (150-375); Red Cell Distribution Width 12.6 % (11.5-14.5); White Blood Count 6.8 K/mm3 (4.5-10.0)
[2021-07-06 10:08] LABS: Lipase 59 U/L (23-300)
[2021-07-06 10:13] LABS: Alanine Aminotransferase 13 U/L (4-35); Albumin Level 4.2 g/dL (3.5-5.1); Alkaline Phosphatase 53 U/L (38-126); Anion Gap 9 mmol/L (8-16); Aspartate Amino Transferase 19 U/L (14-36); Bilirubin,Total 0.5 mg/dL (0.2-1.3); Blood Urea Nitrogen 12 mg/dL (7-17); Calcium 8.8 mg/dL (8.4-10.2); Carbon Dioxide 20 mmol/L (22-30); Chloride 111 mmol/L (98-107); Estimated CRCL calculation 89 ml/min; Estimated Glomerular Filt Rate > 60; Glucose 109 mg/dL (65-110); Potassium 3.9 mmol/L (3.4-5.0); Sodium 140 mmol/L (137-145)
[2021-07-06 10:30] VITALS: BP 130/80; PULSE 74; RESP 19; O2SAT 99
--- NOTE | 2021-07-20 10:27 | PC.NURSE ---
LATE ENTRY This note is being entered to document information to the patient's record. The following information was omitted on [07/06/21], by [Sharmaine Cruz RN]. NS stop time 1045 am
--- NOTE | 2021-07-28 19:16 | PC.NURSE ---
LATE ENTRY This note is being entered to document information to the patient's record. The following information was omitted on [07/28/21], by [HERMINIA Schmid] NS stopped at 1027.
== END 2021-07-06 10:30 | disposition home or self-care (01) ==
PROVIDERS: Emergency Provider Nurse Practitioner Family; PCP Family Medicine
DX: K52.9 Noninfective gastroenteritis and colitis, unspecified (principal); K21.9 Gastro-esophageal reflux disease without esophagitis; Z86.2 Personal history of diseases of the blood and blood-forming organs and certain disorders involving the immune mechanism; Z87.891 Personal history of nicotine dependence
CPT/HCPCS: 36415; 80053; 83690; 85025; 96360; 96372; 99283; J0500; J7030

== ENCOUNTER 2022-03-26 10:49 | Emergency (ER) | payer OTHER, SELFPAY ==
--- NOTE | 2022-03-26 10:51 | ED.URI ---
HPI - URI/Sore Throat General Chief Complaint: Upper Respiratory Infection Stated Complaint: COUGH Time Seen by Provider: 03/26/22 10:51 Source: patient and RN notes reviewed History of Present Illness HPI Narrative: Patient is a 42-year-old female who presents to urgent care with complaints of a cough for 1 week that is worsened. Patient states that last week she started with flu-like symptoms. Denies any recent fevers, nausea, vomiting. Denies of shortness of breath with the exception of during coughing fits. Patient states that she has been taking DayQuil, Severe cold and flu, NyQuil and cough drops without any resolution. No other acute complaints. No acute distress noted. Patient aware of the plan of care. Some parts of this dictation were generated by voice recognition software and may contain typographical and/or grammatical inaccuracies. Related Data Allergies Allergy/AdvReac Type Severity Reaction Status Date / Time No Known Allergies Allergy Verified 03/26/22 10:59 Review of Systems Review of Systems: CONSTITUTIONAL: Denies fever, chills, or sweats. EYES: Denies visual changes, redness, or discharge. ENT: Denies rhinorrhea, congestion, sore throat, or otalgia. CARDIOVASCULAR: Denies chest pain, palpitations, or edema. RESPIRATORY: Reports of heart-cough without dyspnea GASTROINTESTINAL: Denies abdominal pain, nausea, vomiting, or diarrhea. GENITOURINARY: Denies dysuria or hematuria. SKIN: Denies rash or itching. MUSCULOSKELETAL: Denies back pain, joint pain, or myalgia. NEUROLOGIC: Denies headache, numbness, or weakness. All other systems reviewed are negative, except as documented in HPI. [facility] Past Medical History Medical History Abnormal glandular Papanicolaou smear of cervix Anemia Attention deficit disorder (ADD) in adult Dysmenorrhea, unspecified GERD (gastroesophageal reflux disease) Gestational HTN Human papillomavirus Menorrhagia, premenopausal resolved . vaginal hysterectomy/bso Status post hysteroscopy 06.25.19 and dilatation and curettage for menorrhagia Surgical History Surgical History History of section History of vaginal hysterectomy 07.29.2019 and BSO Hx of tubal ligation Social History Social History Smoking status: Former smoker Tobacco type: cigarettes Second hand tobacco smoke exposure: Yes Smoking end date: 04/10/13 Gender identity (if verbalized by the patient): Female Comments At the time of my signature, I reviewed and agree with the nursing past medical, surgical, social, and family history. There is no relevant family history pertinent to the patient complaint. Exam Narrative: GENERAL: This is a well-nourished, well-developed patient, in no apparent distress. HEAD: normocephalic, atraumatic. EYES: PERRL. Sclera clear/white. Vision is grossly intact. EARS: External ears normal, auditory canals clear and without drainage, TMs normal without perforation. Hearing grossly intact. NOSE: External nose normal with no obvious nasal discharge, nares without redness, clear rhinorrhea. THROAT: Mucous membranes moist, posterior pharynx clear. Moderate postnasal drainage NECK: Neck supple, non-tender without lymphadenopathy CARDIOVASCULAR: Regular rate and rhythm without murmurs, gallops, or rubs. RESPIRATORY: Persistent harsh cough noted throughout exam, worsened with deep breathing. Clear to auscultation. Breath sounds equal bilaterally. No wheezes, rales, or rhonchi. SKIN: warm, intact with no suspicious lesions or rash, good texture and turgor. NEURO: awake, alert, and oriented to person, place and time. There were no obvious focal neurologic abnormalities. EXTREMITIES: No clubbing, cyanosis, or edema. Course Course Level of Care: Express Care Visit Vital Signs Vital signs: Vital S
[2022-03-26 10:56] VITALS: BP 126/83; PULSE 98; RESP 16; TEMP 36.8; O2SAT 100
== END 2022-03-26 11:10 | disposition home or self-care (01) ==
PROVIDERS: Emergency Provider Nurse Practitioner Family; PCP Family Medicine
DX: J40 Bronchitis, not specified as acute or chronic (principal); Z87.891 Personal history of nicotine dependence; K21.9 Gastro-esophageal reflux disease without esophagitis
CPT/HCPCS: 99213; G0463

== ENCOUNTER 2022-05-04 10:18 | Outpatient (CLI) | payer OTHER, SELFPAY ==
[2022-05-04 19:00] LABS: Basophils Absolute Auto 0.1 K/mm3 (0.0-0.1); Basophils Percent Auto 1.2 % (0.2-1.2); Eosinophils Absolute Auto 0.1 K/mm3 (0-0.3); Eosinophils Percent Auto 1.6 % (0-4.4); Hemoglobin 12.8 g/dL (12.0-15.0); Immature Granulocyte Absolute 0.01 K/mm3 (0.00-0.031); Immature Granulocyte Percent A 0.2 % (0-0.5); Mean Corpuscular HGB Conc 32.8 g/dl (32-36); Mean Corpuscular Hemoglobin 29.5 pg (26-34); Mean Corpuscular Volume 89.9 fl (80-100); Mean Platelet Volume 10.1 fl (7.4-10.4); Monocytes Absolute Auto 0.3 K/mm3 (0.1-0.6); Monocytes Percent Auto 5.9 % (2.6-8.5); Neutrophils Absolute Auto 3.3 K/mm3 (1.3-6.7); Neutrophils Percent Auto 59.1 % (45.5-73.1); Platelet Count Result 372 k/mm3 (150-375); Red Blood Count 4.34 M/mm3 (4.2-5.4); Red Cell Distribution Width 13.2 % (11.5-14.5); White Blood Count 5.6 K/mm3 (4.5-10.0)
[2022-05-04 19:11] LABS: Alanine Aminotransferase 15 U/L (6-35); Alkaline Phosphatase 61 U/L (38-126); Anion Gap 6 mmol/L (8-16); Aspartate Amino Transferase 25 U/L (14-36); Bilirubin,Total 0.6 mg/dL (0.2-1.3); Blood Urea Nitrogen 9 mg/dL (7-17); Calcium 9.1 mg/dL (8.4-10.2); Carbon Dioxide 26 mmol/L (22-30); Chloride 107 mmol/L (98-107); Cholesterol 191 mg/dL (0-200); Estimated Glomerular Filt Rate > 60; Glucose 87 mg/dL (65-110); HDL Direct 56 mg/dL; Potassium 3.8 mmol/L (3.4-5.0); Sodium 139 mmol/L (137-145); Triglycerides 56 mg/dL (<150)
[2022-05-04 19:23] LABS: LDL Cholesterol Direct 103 mg/dL
[2022-05-04 19:50] LABS: Vitamin D 25 Hydroxy 23.2 ng/mL
[2022-05-07 04:13] LABS: Thyroid Peroxidase Antibodies <1 IU/mL (<9)
[2022-05-08 06:16] LABS: FSH 14.6 mIU/mL (***)
[2022-05-16 11:29] LABS: Estrogen 390.5 pg/mL
== END 2022-05-04 10:19 | disposition home or self-care (01) ==
LOC: ANHGOSHLAB 10:19
PROVIDERS: PCP Family Medicine; Visit Provider Family Medicine
DX: R53.83 Other fatigue (principal); E66.3 Overweight
CPT/HCPCS: 36415; 80053; 80061; 82306; 82607; 82672; 82728; 83001; 83002; 84443; 85025; 86376

== ENCOUNTER 2022-08-01 10:18 | Emergency (ER) | payer OTHER, SELFPAY ==
--- NOTE | ~2022-08-01 | XR_ITS ---
EXAMINATION: XR ankle LT min 3V DATE: 08/01/2022 10:55 INDICATION: Lateral sided left ankle pain and swelling TECHNIQUE: Anteroposterior, oblique, mortise, and lateral views of the left ankle were obtained. COMPARISON: None. FINDINGS: Alignment is normal. No fracture. Joint spaces are well maintained. No ankle joint effusion. The so ft tissues are unremarkable. IMPRESSION: 1. Negative left ankle radiographs. Reviewed, dictated and finalized at location A.
--- NOTE | 2022-08-01 10:22 | ED.LOWEXIN ---
HPI - Extremity Injury (Lower) General Stated Complaint: diarrhea,lt ankle pain Time Seen by Provider: 08/01/22 10:48 Source: patient and RN notes reviewed Mode of arrival: ambulatory Limitations: no limitations History of Present Illness HPI Narrative: 42-year-old female presents with multiple concerns. She reports left ankle pain for several weeks. She denies any known injury. Reports ankle hurts worse with weight-bearing. She reports lateral ankle swelling. She reports the pain occasionally shoots up her leg. She denies redness, warmth, open skin, rash in that area. She denies general malaise, fever, aches, chills, sweats. And a separate complaints she reports diarrhea that started on Monday. Patient's daughter was recently diagnosed with a viral gastroenteritis. Patient reports approximately 10 diarrhea episodes daily on Monday and Monday, diarrhea episodes have lessened since then, she has had 1 today. She denies nausea, vomiting, abdominal pain. Denies upper respiratory symptoms MD complaint: ankle injury Related Data Home Medications Medication Instructions Recorded Confirmed L. crispatus, gasseri, jensenii, cap PO 04/28/22 04/28/22 rhamnosus 5 billion cell capsule (AZO Complete Feminine Balance) loratadine 10 mg tablet (Claritin) 10 mg PO DAILY 08/01/22 08/01/22 Allergies Allergy/AdvReac Type Severity Reaction Status Date / Time No Known Allergies Allergy Verified 08/01/22 10:27 Review of Systems Review of Systems: CONSTITUTIONAL: Denies malaise, chills, sweats, or fever. EYES: Denies visual changes, redness, or discharge. ENT: Denies rhinorrhea, congestion, sinus pain, otalgia or sore throat. CARDIOVASCULAR: Denies chest pain, palpitations, or edema. RESPIRATORY: Denies cough or dyspnea. GASTROINTESTINAL: Denies abdominal pain, nausea, vomiting, bloody, or mucous stools. Reports diarrhea GENITOURINARY: Denies dysuria or hematuria. SKIN: Denies rash or itching. MUSCULOSKELETAL: Reports left ankle pain and swelling NEUROLOGIC: Denies numbness, weakness, or headache. PSYCHIATRIC: Denies anxiety or depression. All systems reviewed & are unremarkable except as noted in HPI and below PMFSH Past Medical History Medical History Abnormal glandular Papanicolaou smear of cervix Anemia Attention deficit disorder (ADD) in adult Dysmenorrhea, unspecified GERD (gastroesophageal reflux disease) Gestational HTN Human papillomavirus Menorrhagia, premenopausal resolved . vaginal hysterectomy/bso Status post hysteroscopy 06.25.19 and dilatation and curettage for menorrhagia Surgical History Surgical History History of section History of vaginal hysterectomy 07.29.2019 and BSO Hx of tubal ligation Social History Social History (Updated 04/28/22 @ 16:01 by Yovany Echevarria MA) Smoking status: Former smoker Tobacco type: cigarettes Second hand tobacco smoke exposure: Yes Smoking end date: 04/10/13 Lack of Transportation: No Lack of Food: Never True Current Housing: I Have Housing Concerned About Future Housing: No Difficulty Paying Gas/Electric Bills: No Difficulty Paying for Meds: No Currently Unemployed: No Education: Trade/Vocational Certificate Difficulty w/ Childcare or Family Care: No Gender identity (if verbalized by the patient): Female Comments At time of signature, agree with nursing past medical, surgical, social and family history. There is no relevant family history pertinent to the presenting complaint Exam Narrative: GENERAL: Well-appearing, well-nourished, and in no acute distress. HEAD: Normocephalic, atraumatic. EYES: PERRLA, conjunctivae clear NECK: Supple. CHEST: Speaks in full sentences. No respiratory distress. HEART: Regular rate and rhythm. Normal and equal peripheral pulses. EXTREMITIES: Left ankle, foot, digits
[2022-08-01 10:25] VITALS: BP 119/75; PULSE 82; RESP 16; TEMP 36.3; O2SAT 100
== END 2022-08-01 11:27 | disposition home or self-care (01) ==
PROVIDERS: Emergency Provider Nurse Practitioner; PCP Family Medicine
DX: R19.7 Diarrhea, unspecified (principal); M25.572 Pain in left ankle and joints of left foot; K21.9 Gastro-esophageal reflux disease without esophagitis
CPT/HCPCS: 73610; 99213; G0463

== ENCOUNTER 2023-02-06 12:18 | Outpatient (CLI) | payer OTHER, SELFPAY ==
--- NOTE | ~2023-02-06 | MR_ITS ---
EXAMINATION: MR ankle LT wo con DATE: 02/06/2023 13:10 INDICATION: Enthesopathy of the left foot and ankle with 6 months of left ankle pain and swelling TECHNIQUE: Magnetic resonance imaging (MRI) of the left ankle was performed without intravenous contr ast. Sequences included sagittal, coronal, and axial proton-density weighted fast spin echo without a nd with fat saturation. COMPARISON: None. FINDINGS: Medial ankle ligaments: Deep and superficial deltoid ligaments as well as the spring ligament are normal. Lateral ankle ligaments: The anterior and posterior inferior tibiofibular ligaments are normal. The anterior talofibular, calc aneofibular and posterior talofibular ligaments are normal. Tendons: Achilles tendon is normal. Mild peroneal tenosynovitis. There is mild tendinopathy without discrete t ear of the peroneus longus tendon. Moderate peroneus brevis tendinopathy with longitudinal split tear beginning at the level of the retromalleolar groove and extending to at least the trochlear process at the lateral calcaneus. The tibialis anterior and extensor hallucis longus and extensor digitorum l ongus tendons are normal. The tibialis posterior, flexor digitorum longus and flexor hallucis longus tendons are normal. Plantar fascia: Plantar aponeurosis is normal. Bones/other: Bone alignment is normal. Normal marrow signal throughout with no fracture, reactive edema or patholo gic marrow replacing process. Fluid: Physiologic amount fluid in the joint spaces. IMPRESSION: 1. Mild peroneal tenosynovitis with mild tendinopathy without tear of the peroneus longus tendon and moderate tendinopathy with longitudinal split tear of the peroneus brevis tendon. Reviewed, dictated and finalized at location A. IMPRESSION: 1. Mild peroneal tenosynovitis with mild tendinopathy without tear of the peron eus longus tendon and moderate tendinopathy with longitudinal split tear of the peroneus brevis tendon.
== END 2023-02-06 12:19 ==
LOC: GOSHIMG 12:20
PROVIDERS: PCP Family Medicine; Visit Provider Orthopaedic Surgery
DX: M77.52 Other enthesopathy of left foot and ankle (principal)
CPT/HCPCS: 73721

== ENCOUNTER 2023-07-31 15:43 | Emergency (ER) | payer OTHER, SELFPAY ==
[2023-07-31 15:47] VITALS: BP 117/79; PULSE 89; RESP 16; TEMP 36.9; O2SAT 100
--- NOTE | 2023-07-31 16:09 | ED.GENADULT ---
HPI - General Adult General Chief complaint: Neck Pain/Injury Stated complaint: Neck and Throat Pain/Swelling Time Seen by Provider: 07/31/23 16:00 Source: patient and RN notes reviewed Mode of arrival: ambulatory Limitations: no limitations History of Present Illness HPI narrative: Patient presents today complaining of a 6 day history of sore throat and left-sided neck pain and swelling. Also reports that she had a fever up to 101 on the day of onset of symptoms, but none since then. She reports some mild sneezing, but denies any additional symptoms to include congestion, rhinorrhea, cough, shortness of breath. She currently rates her pain 5/10 and has been using nasal spray without much relief. Related Data Home Medications Medication Instructions Recorded Confirmed loratadine 10 mg tablet (Claritin) 10 mg PO DAILY 08/01/22 07/31/23 Hormone Replacement 1 cap PO DAILY 07/31/23 07/31/23 Allergies Allergy/AdvReac Type Severity Reaction Status Date / Time No Known Allergies Allergy Verified 07/31/23 15:49 Review of Systems Review of Systems: CONSTITUTIONAL: Denies body aches, fever, chills, or sweats. EYES: Denies visual changes, redness, or discharge. ENT: Denies rhinorrhea, congestion, or otalgia.+ sore throat, neck pain and swelling, sneezing CARDIOVASCULAR: Denies chest pain, palpitations, or edema. RESPIRATORY: Denies cough or dyspnea. GASTROINTESTINAL: Denies abdominal pain, nausea, vomiting, or diarrhea. GENITOURINARY: Denies dysuria or hematuria. SKIN: Denies rash, itching, or wounds. MUSCULOSKELETAL: Denies back pain, joint pain, or myalgia. NEUROLOGIC: Denies headache, numbness, tingling, or weakness. PSYCH: Denies depression or anxiety. [facility] Past Medical History Medical History Abnormal glandular Papanicolaou smear of cervix Anemia Attention deficit disorder (ADD) in adult Dysmenorrhea, unspecified GERD (gastroesophageal reflux disease) Gestational HTN Human papillomavirus Menorrhagia, premenopausal resolved . vaginal hysterectomy/bso Status post hysteroscopy 3.17.20 and dilatation and curettage for menorrhagia Tibialis anterior tendon tear, traumatic Surgical History Surgical History History of section History of vaginal hysterectomy 07.29.2019 and BSO Hx of tubal ligation Social History Social History Smoking status: Former smoker Tobacco type: cigarettes Second hand tobacco smoke exposure: Yes Smoking end date: 04/10/13 Lack of Transportation: No Lack of Food: Never True Current Housing: I Have Housing Concerned About Future Housing: No Difficulty Paying Gas/Electric Bills: No Difficulty Paying for Meds: No Currently Unemployed: No Education: Associate Degree Difficulty w/ Childcare or Family Care: No Gender identity (if verbalized by the patient): Female Comments At time of signature, I have reviewed and agree with nursing past medical, surgical, social and family history unless otherwise noted. Please see nursing chart for further information. There is no relevant family history pertinent to the presenting complaint Exam Narrative: GENERAL: Well-appearing, well-nourished, and in no acute distress. HEAD: Normocephalic, atraumatic. EYES: EOMI. No redness or drainage. Conjunctivae normal. ENT: Mucous membranes pink and moist. Nares clear. No rhinorrhea. TMs normal bilaterally. Throat mildly erythematous without edema or exudate. Uvula midline. NECK: Normal AROM. Left anterior and tonsillar chain lymphadenopathy and tenderness. No erythema or induration of the neck. CHEST: No respiratory distress. Clear to auscultation. HEART: Regular rate and rhythm. No murmur appreciated. EXTREMITIES: Normal range of motion. No edema. SKIN: Warm, dry, no rash. Capillary
== END 2023-07-31 16:18 | disposition home or self-care (01) ==
PROVIDERS: Emergency Provider Nurse Practitioner; PCP Family Medicine
DX: J02.0 Streptococcal pharyngitis (principal); R59.1 Generalized enlarged lymph nodes; Z87.891 Personal history of nicotine dependence; K21.9 Gastro-esophageal reflux disease without esophagitis
CPT/HCPCS: 87081; 87147; 87880; 99213; G0463

== ENCOUNTER 2024-03-26 10:35 | Emergency (ER) | payer OTHER, SELFPAY ==
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
[2024-03-26 10:40] VITALS: BP 124/81; PULSE 67; RESP 18; TEMP 36.4; O2SAT 100
[2024-03-26] MEDS: dexAMETHasone SOD PHOS INJ 10 MG/ML 1 ML VIAL IM (11:57)
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
[2024-03-26] MEDS: KETOROLAC (*BKC) 60 MG/2 ML VIAL IM (12:53)
[2024-03-26 13:09] VITALS: BP 132/78; PULSE 84; RESP 16; TEMP 36.8; O2SAT 99
== END 2024-03-26 13:45 | disposition home or self-care (01) ==
PROVIDERS: Emergency Provider Registered Nurse; PCP Family Medicine
DX: S06.0X0A Concussion without loss of consciousness, initial encounter (principal); S16.1XXA Strain of muscle, fascia and tendon at neck level, initial encounter; S39.012A Strain of muscle, fascia and tendon of lower back, initial encounter; K21.9 Gastro-esophageal reflux disease without esophagitis; Z87.891 Personal history of nicotine dependence; Z90.710 Acquired absence of both cervix and uterus; Z90.722 Acquired absence of ovaries, bilateral; Z90.79 Acquired absence of other genital organ(s); V49.40XA Driver injured in collision with unspecified motor vehicles in traffic accident, initial encounter
CPT/HCPCS: 70450; 72125; 72131; 96372; 99284; J1100; J1885